=== PATIENT | female | born 1965 | race Caucasian/White ===

== ENCOUNTER 2016-09-27 13:59 | Emergency (ER) | payer OTHER ==
[~2016-09-27] VITALS: Ht 162.6 cm; Wt 61.8 kg
[2016-09-27 14:09] VITALS: TEMP 37.1; Ht 162.6 cm; Wt 61.8 kg
[2016-09-27] MEDS ORDERED: DiphenhydrAMINE HCL 50 MG/ML VIAL IV STA (14:17)
[2016-09-27] MEDS ORDERED: METHYLPREDNISOLONE 125 MG VIAL IV STA (14:17)
--- NOTE | 2016-09-27 14:24 | EMERGENCY ROOM VISIT NOTE ---
History First contact with patient: 14:17 Chief Complaint: ALLERGIC REACTION Stated Complaint: HIVES/LUMP IN THROAT/LUNG PAIN History of Present Illness The patient is a 51 year old female who presents to the Emergency Room with complaints of rash and lump in her throat. She took a dose of Bactrim DS which she was prescribed by Dr Avendano for a UTI at 12:50 today. She then developed a rash, initially it was on her anterior chest, then this spread to the rest of her chest and neck. She reports she feels like she has a lump in her throat. She denies any lip swelling or difficulty breathing. She reports she feels itchy overall. She has no other allergies to foods or medications. She does report urinary symptoms including dysuria and frequency. Review of Systems See HPI for pertinent positives & negatives. A total of 10 systems reviewed and were otherwise negative. Past Medical/Surgical History Urinary Tract Infection Social History Smoking Status: Current Every Day Smoker Current/Historical Medications Scheduled Nitrofurantoin Monohyd Macrocr (Macrobid), 100 MG PO BID Prednisone (Prednisone), 1 TAB PO DAILY Allergies Coded Allergies: Sulfamethoxazole w/Trimethoprim (Unverified Allergy, Unknown, hives and lump in throat, 09/27/16) Physical Exam Vital Signs Date Time Temp Pulse Resp B/P Pulse Ox O2 Delivery O2 Flow Rate FiO2 09/27/16 16:36 78 20 108/68 97 09/27/16 15:04 83 20 111/73 97 Room Air 09/27/16 14:59 96 Room Air 09/27/16 14:09 37.1 104 18 132/71 97 Room Air Physical Exam GENERAL: Awake, alert, well-appearing, in no acute distress HENT: Normocephalic, atraumatic. Oropharynx unremarkable. Patent airway. EYES: Normal conjunctiva. Sclera non-icteric. NECK: Supple. No nuchal rigidity. FROM. No JVD. RESPIRATORY: Clear to auscultation. CARDIAC: Regular rate, normal rhythm. Extremities warm and well perfused. Pulses equal. ABDOMEN: Soft, non-distended. No tenderness to palpation. No rebound or guarding. No masses. RECTAL: Deferred. MUSCULOSKELETAL: Chest examination reveals no tenderness. The back is symmetrical on inspection without obvious abnormality. There is no CVA tenderness to palpation. No joint edema. LOWER EXTREMITIES: Calves are equal size bilaterally and non-tender. No edema. No discoloration. NEURO: Normal sensorium. No sensory or motor deficits noted. SKIN: Erythematous skin to anterior chest and neck. Excoriation schaeffer noted. Medical Decision & Procedures Medications Administered Medications (Trade) Dose Ordered Sig/Maria Eugenia Route Start Time Stop Time Status Last Admin Dose Admin Methylprednisolone Sodium Succinate (Solu-Medrol IV) 125 mg NOW STAT IV 09/27/16 14:17 09/27/16 14:18 DC 09/27/16 14:30 125 MG Diphenhydramine HCl 25 mg 25 mg NOW STAT IV 09/27/16 14:17 09/27/16 14:18 DC 09/27/16 14:30 25 MG Famotidine/ Dextrose (Pepcid IV Inj/ D5 100ml) 102 ml @ 200 mls/hr ONE STAT IV 09/27/16 14:54 09/27/16 15:24 DC 09/27/16 15:02 200 MLS/HR ED Course 2:18: I evaluated the patient in room C9. She had a patent airway. I ordered her Benadryl 25mg IV and SoluMedrol 125mg IV. 2:25: I discussed the case with Dr Watkins (Attending Physician). We added on Famotidine 20mg IV. 3:00: I checked on the patient, she reported feeling better. 3:45: I gave the patient a PO challenge of water, which she was able to swallow without difficulty. Medical Decision 51 yo F with first episode of allergy to Bactrim, with no previous exposure to Sulfas. Differential includes anaphylaxis, mild reaction, and reactive airway disease. The patient had an allergic reaction to Bactrim DS, which occurred about 20 minutes after ingestion of her first dose. She was hemodynamically stable and had a patent airway. There was no evidence of anaphylaxis. She did have a rash and was itching frequently. Upon further review with Dr Watkins, she had started to feel better, and looked markedly better by review an hour later. She was discharged home, her antibiotic was changed to Macrobid 100mg BID for 1 week. She was given 2 days of 50mg PO Prednisone as well. She was advised to follow up with her PCP and was discharged home in good condition. Impression Primary Impression: Adverse reaction to drug Departure Information Prescriptions Prednisone (Prednisone) 50 Mg Tab 1 TAB PO DAILY for 3 Days, #3 TAB Prov: Vithalani, Patsy ., MD 09/27/16 Nitrofurantoin Monohyd Macrocr (Macrobid) 100 Mg Cap 100 MG PO BID, #6 CAP Prov: Patsy Tran MD 09/27/16 Referrals Oswald Avendano M.D. (PCP) Patient Instructions My [facility] Resident Tracking Resident Involvement: Resident Care Provided Care Provided: Adult ED Resident Tracking Resident Involvement: Resident Care Provided Care Provided: Adult ED
[2016-09-27] MEDS ORDERED: FAMOTIDINE 20MG/102 ML D5W ONE (14:58)
[2016-09-27] MEDS: FAMOTIDINE IV INJ 20 MG in DEXTROSE 5% 100ML 100 ML IV STA ×2 (15:01→15:02)
[2016-09-27] MEDS ORDERED: NITR-5 PO (16:18)
[2016-09-27] MEDS ORDERED: PRED50TA PO (16:24)
[2016-09-27 16:36] VITALS: BP 108/68; PULSE 78; O2SAT 97
--- NOTE | 2016-09-27 20:15 | EMERGENCY ROOM VISIT NOTE ---
ED Visit Note First contact with patient: 14:17 I have personally evaluated this patient examined her and reviewed the pertinent labs and data. I have discussed the case with the resident physician and agree with the plan. Please refer to the PA note The patient comes in after having an apparent allergic reaction after taking Bactrim. She's had no known drug allergies. This happened within about an hour and she felt like her skin was on fire and she was itchy and she felt a lump in her throat. On my exam, she is resting comfortably. She is in no respiratory distress. She speaking and swallowing without any problems and has no GI symptoms. She has no swelling of the mouth, lips, or tongue. Her skin is slightly red. She was given IV Benadryl, Solu-Medrol and an H1 inhibitor. She was observed in the ER she was completely asymptomatic and was observed several hours and I think most likely this is is Bactrim/sulfa allergy. I told her not to take anymore sulfa and started on Macrobid instead. She is to rest and drink plenty of fluids. Return if :shortness of breath, worsening of symptoms, fever or chills, any new problems or concerns. She is happy with the plan and discharged to home.
== END 2016-09-27 16:37 | disposition home or self-care (01) ==
LOC: C.EDB 14:00 → C.EDC 16:37
DX: R21 Rash and other nonspecific skin eruption (principal); R22.1 Localized swelling, mass and lump, neck; T37.0X5A Adverse effect of sulfonamides, initial encounter; N39.0 Urinary tract infection, site not specified; F17.200 Nicotine dependence, unspecified, uncomplicated

== ENCOUNTER → 2016-09-27 | Outpatient (CLI) | payer OTHER ==
[~2016-09-27] MED LIST: NITR-5 PO; PRED50TA PO
== END | disposition home or self-care (01) ==
LOC: C.LABSPEC 12:55
PROVIDERS: ATTEND Internal Medicine
DX: R39.9 Unspecified symptoms and signs involving the genitourinary system (principal)

== ENCOUNTER → 2016-11-02 | Outpatient (CLI) | payer OTHER ==
[~2016-11-02] MED LIST changes: -PRED50TA PO
[2016-11-02 12:52] LABS: URINE APPEARANCE CLEAR (CLEAR); URINE BILIRUBIN NEG (NEG); URINE COLOR YELLOW; URINE NITRITE NEG (NEG); UROBILINOGEN NEG (NEG)
[2016-11-02 13:00] LABS: MANUAL MICROSCOPIC REQUIRED? NO; REVIEW REQ? NO
== END | disposition home or self-care (01) ==
LOC: C.LABBFT 09:20
PROVIDERS: ATTEND Internal Medicine
DX: R39.9 Unspecified symptoms and signs involving the genitourinary system (principal)

== ENCOUNTER → 2017-01-11 | Outpatient (CLI) | payer OTHER ==
--- NOTE | 2017-01-12 14:09 | MAMMOGRAPHY REPORT ---
BILATERAL DIGITAL SCREENING MAMMOGRAM TOMOSYNTHESIS WITH CAD: 01/11/2017 CLINICAL HISTORY: Routine screening. Patient has no complaints. TECHNIQUE: Breast tomosynthesis in addition to standard 2D mammography was performed. Current study was also evaluated with a Computer Aided Detection (CAD) system. COMPARISON: Comparison is made to exams dated: 01/08/2016 mammogram, 10/22/2015 mammogram, 01/02/2015 m ammogram, 12/31/2013 mammogram, 12/29/2012 mammogram, and 12/29/2011 mammogram - [facility]. BREAST COMPOSITION: The tissue of both breasts is heterogeneously dense, which may obscure small ma sses. FINDINGS: There is evidence of prior surgery in the right breast. No new suspicious mass, sfdc architect ural distortion or cluster of microcalcifications is seen. IMPRESSION: ACR BI-RADS CATEGORY 1: NEGATIVE There is no mammographic evidence of malignancy. A 1 year screening mammogram is recommended. The p atient will receive written notification of the results. Approximately 10% of breast cancers are not detected with mammography. A negative mammographic repor t should not delay biopsy if a clinically suggestive mass is present. Rosemarie Rios M.D. ay/:01/11/2017 16:38:07 Pressure Tester: Tavia MARR(R)(M), [facility] letter sent: Normal 1/2 BI-RADS Code: ACR BI-RADS Category 1: Negative
== END | disposition home or self-care (01) ==
LOC: C.MAMM 09:40
PROVIDERS: ATTEND Obstetrics & Gynecology
DX: Z12.31 Encounter for screening mammogram for malignant neoplasm of breast (principal)

== ENCOUNTER → 2017-05-16 | Outpatient (CLI) | payer OTHER | END | disposition home or self-care (01) | LOC: C.PAPS 14:04 | PROVIDERS: ATTEND Obstetrics & Gynecology | DX: Z12.4 Encounter for screening for malignant neoplasm of cervix (principal) ==

== ENCOUNTER → 2017-06-07 | Outpatient (CLI) | payer OTHER ==
--- NOTE | 2017-06-07 11:16 | DIAGNOSTIC IMAGING REPORT ---
R UPPER EXT JOINT WITHOUT CLINICAL HISTORY: 52 years-old Female with M25.511 Right shoulder painright shoulder pain getting worse .... Chronic right shoulder pain without known injury COMPARISON: None. TECHNIQUE: Multiplanar, multi sequence MRI of the right shoulder was performed without intravenous contrast. FINDINGS: Study is very limited secondary to metallic artifact and patient motion artifact as described below. ROTATOR CUFF: There is moderate tendinosis of the supraspinatus with low-grade partial-thickness tearing noted at the anterior insertional fibers. No high-grade partial or full-thickness tear of the supraspinatus. Low-grade partial-thickness tearing involves the posterior insertional fibers of the infraspinatus tendon, 6 x 7 mm as seen on image 9 of series 8 and image 4 of series 11. Mild intramuscular edema is seen involving the infraspinatus tendon within the region of the myotendinous junction as seen on image 12 of series 8 and image 13 of series 11. No muscular atrophy identified. Infraspinatus and subscapularis tendons are intact. Mild subscapularis tendinosis. BICEPS TENDON: The long-head biceps tendon is intact. No evidence of significant tendinosis. The biceps antwan and anchor are intact. LABRUM: There is mild fraying of the superior labrum both anteriorly and posteriorly without definite discrete acute tear, displaced labral fragment or paralabral cyst. GLENOHUMERAL JOINT: Small joint effusion. Mild glenohumeral osteoarthritis. There is no loose body or debris present within the glenohumeral joint. ACROMIOCLAVICULAR JOINT: Mild degenerative changes of the AC joint with capsular hypertrophy and marginal spurring. The acromium has a gently curved undersurface. Trace subacromial/subdeltoid bursitis. OUTLET SPACES: The suprascapular notch and quadrilateral space are without obstructing or space occupying lesions. BONE MARROW: No focal abnormality, fracture or marrow occupying lesion. Minimal subcortical cystic changes of the greater tuberosity. SOFT TISSUES: There is moderate artifact from metallic density structure within the soft tissues lateral to the acromium which limits all of the sequences. No radiographs are available comparison to assess nature of the metallic foreign body. IMPRESSION: 1. Very limited study secondary to patient motion and artifact from nonspecific metallic foreign body within the soft tissues in the region of the acromium. Correlate with follow-up radiographs. 2. Moderate supraspinatus tendinosis with low-grade partial-thickness tearing of the anterior insertional fibers. No high-grade partial or full-thickness tear. 3. Low-grade partial-thickness tearing of the posterior insertional fibers of the infraspinatus tendon as above with mild intramuscular edema, likely reactive. 4. Small joint effusion with mild glenohumeral and acromioclavicular osteoarthritis. 5. Trace subacromial/subdeltoid bursitis. The above report was generated using voice recognition software. It may contain grammatical, syntax or spelling errors. Electronically signed by: Cornel Coto M.D. 06/07/2017 11:15 AM Dictated Date/Time: 06/07/2017 9:08 AM
== END | disposition home or self-care (01) ==
LOC: C.MRI 07:53
PROVIDERS: ATTEND Internal Medicine
DX: S46.801A Unspecified injury of other muscles, fascia and tendons at shoulder and upper arm level, right arm, initial encounter (principal); M25.511 Pain in right shoulder; M75.31 Calcific tendinitis of right shoulder; X58.XXXA Exposure to other specified factors, initial encounter

== ENCOUNTER → 2017-09-08 | Outpatient (CLI) | payer OTHER ==
[~2017-09-08] MED LIST changes: +IBUP-103 PO; -NITR-5 PO
[2017-09-08 09:31] LABS: BASO % 0.4 %; BASO ABS # 0.02 K/uL (0-0.2); EOS % 2.4 %; EOS ABS # 0.13 K/uL (0-0.5); HEMATOCRIT 43.3 % (37-47); HEMOGLOBIN 14.8 g/dL (12.0-16.0); IG# 0.01 K/uL (0.00-0.02); LYMPH % 48.8 %; LYMPH ABS # 2.65 K/uL (1.2-3.4); MEAN CELL VOLUME 90.6 fL (80-100); MEAN CORPUSCULAR HGB CONC 34.2 g/dl (32-36); MEAN PLATELET VOLUME 9.2 fL (7.4-10.4); MONO % 7.7 %; MONO ABS # 0.42 K/uL (0.11-0.59); NEUT % 40.5 %; PLATELET COUNT 279 K/uL (130-400); RED CELL DISTRIBUTION WIDTH CV 12.4 % (11.5-14.5); RED CELL DISTRIBUTION WIDTH SD 41.5 fL (36.4-46.3); WHITE BLOOD COUNT 5.43 K/uL (4.8-10.8)
[2017-09-08 10:00] LABS: BLOOD UREA NITROGEN 13 mg/dl (7-18); CALCIUM 9.2 mg/dl (8.5-10.1); CARBON DIOXIDE 28 mmol/L (21-32); CREATININE 0.76 mg/dl (0.60-1.20); GLUCOSE 85 mg/dl (70-99); POTASSIUM 3.7 mmol/L (3.5-5.1); SODIUM 140 mmol/L (136-145)
== END | disposition home or self-care (01) ==
LOC: C.CPL 08:16
PROVIDERS: ATTEND Orthopaedic Surgery
DX: Z01.810 Encounter for preprocedural cardiovascular examination (principal); Z01.812 Encounter for preprocedural laboratory examination; M25.511 Pain in right shoulder

== ENCOUNTER → 2017-10-13 | Day surgery (SDC) | payer SELFPAY ==
[2017-09-05 13:36] VITALS: Ht 162.6 cm; Wt 58.6 kg
--- NOTE | 2017-09-22 08:21 | History & Physical Bridge - [place] ---
H&P Re-Evaluation Bridge Note: I have examined the patient, reviewed the History & Physical and in the interval since the performance of the History & Physical I have noted the following changes of clinical significance: No changes noted
[~2017-10-13] VITALS: Ht 162.6 cm; Wt 58.6 kg
[~2017-10-13] MED LIST changes: +ATROPINE SULFATE 0.1 MG/ML 5ML SYR IV PRN; +BUPIVACAINE/EPINEPHRINE 0.25% 1:200,000 30 ML VIAL ONE; +CEFAZOLIN 2000MG IV PUSH 15 ML IV SCH; +DEXAMETHASONE SOD INJ 4 MG/ML VIAL IV PRN; +EpHEDrine SULFATE INJ 50 MG/ML AMP IV PRN; +EpINEphrine HCL INJ 1 MG/ML 1ML SYRINGE ONE; +FENTANYL CITRATE INJ 50 MCG/1 ML 2 ML VIAL IV PRN; +KETOROLAC TROMETHAMINE 30 MG/ML VIAL IV. PRN; +LABETALOL HCL IV 5 MG/ML 20ML IV PRN; +LACTATED RINGER'S 1000ML 1,000 ML IV SCH; +METHYLPREDNISOLONE ACETATE 80 MG/ML VIAL ONE; +METOCLOPRAMIDE HCL INJ 5 MG/ML 2 ML VIAL IV PRN; +MIDAZOLAM HCL 1 MG/ML 2ML VIAL ONE; +MoRPHine SULFATE 10 MG/ML CARP/VIAL IV PRN; +ONDANSETRON INJ 2 MG/ML 2 ML VIAL IV PRN; +PHENYLEPHRINE 100MCG/ML 5ML SYR IV PRN; +ROPIVACAINE 0.5% 5 MG/ML 30 ML VIAL ONE
== END | disposition home or self-care (01) ==
LOC: EDSTATUS 08:45 → C.PAT 16:04
PROVIDERS: ATTEND Orthopaedic Surgery
DX: M25.511 Pain in right shoulder (principal); Z53.09 Procedure and treatment not carried out because of other contraindication